=== PATIENT | female | born 1945 | race Caucasian/White ===

== ENCOUNTER → 2018-04-24 | Outpatient (CLI) | payer MEDICARE, BC | LOC: MC.RAD 07:38 | DX: Z12.31 Encounter for screening mammogram for malignant neoplasm of breast (principal) ==

== ENCOUNTER 2018-10-26 09:50 | Emergency (ER) | payer MEDICARE, BC ==
[2018-10-26 09:54] VITALS: TEMP 97.9
[2018-10-26 10:12] LABS: COLLECTION METHOD CLEAN CATCH
[2018-10-26] MEDS ORDERED: PRINIVIL20 MG (10:14)
[2018-10-26] MEDS ORDERED: ZANTAC 150MG T150 MG (10:14)
[2018-10-26] MEDS ORDERED: ZOCOR 20MG20 MG (10:14)
[2018-10-26] MEDS ORDERED: CLARITIN 1010 MG/TAB (10:18)
[2018-10-26 10:20] LABS: PH 7 (5-8); URINE APPEARANCE Turbid; URINE BACTERIA Rare /hpf; URINE BILIRUBIN Negative (NEGATIVE); URINE BLOOD Negative (NEGATIVE); URINE COLOR Yellow; URINE GLUCOSE 1+ (NEGATIVE); URINE KETONE Negative (NEGATIVE); URINE LEUKOCYTE ESTERASE 2+ (NEGATIVE); URINE NITRATE Negative (NEGATIVE); URINE PROTEIN(semi-quant) 3+ (NEGATIVE); URINE RBC 20-50 /hpf; URINE UROBILINOGEN Negative (NEGATIVE)
[2018-10-26 10:22] LABS: BASO % 0.4 % (0.0-2.0); EOS # 0.2 (0.0-0.7); EOS % 1.6 % (0-4.0); GRAN # 7.4 (1.4-6.5); GRAN % 71.8 % (42.2-75.2); HEMOGLOBIN 11.2 g/dl (12.5-16.0); LYMPH # 1.8 (1.2-3.4); LYMPH % 17.4 % (20.0-51.0); MEAN CELL VOLUME 98 fl (80.0-100.0); MEAN CORPUSCULAR HEMOGLOBIN 31 pg (27.0-31.0); MEAN CORPUSCULAR HGB CONC 32 g/dl (33.0-37.0); MEAN PLATELET VOLUME 9.3 fl (7.4-10.4); MONO # 0.9 (0.1-0.6); MONO % 8.6 % (1.7-9.3); PLATELET COUNT 250 K/mm3 (130-400); RED BLOOD COUNT 3.64 M/mm3 (4.10-5.30); REDCELL DISTRIBUTION WIDTH-CV 12.4 % (11.5-14.5)
[2018-10-26 10:24] LABS: HEMATOCRIT 35.6 % (37.0-47.0)
[2018-10-26 10:33] LABS: ALBUMIN 3.7 gm/dL (3.5-5.0); BILIRUBIN,TOTAL 0.2 mg/dL (0.0-1.0); CREATININE, serum 1.68 (0.52-1.25); POTASSIUM 4.4 mmol/L (3.4-5.0); TOTAL PROTEIN 7.5 gm/dL (6.4-8.2)
[2018-10-26] MEDS ORDERED: ZOFRAN 4MG T4 MG/TAB PO (11:48)
[2018-10-26] MEDS ORDERED: MACROBID 1100 MG/CAP PO (11:48)
[2018-10-26 12:06] VITALS: BP 119/61; PULSE 88
== END 2018-10-26 12:07 | disposition home or self-care (01) ==
LOC: COL.ER 09:50
PROVIDERS: Emergency Medicine
DX: N28.9 Disorder of kidney and ureter, unspecified (principal); N39.0 Urinary tract infection, site not specified; D64.9 Anemia, unspecified; N81.10 Cystocele, unspecified; I10 Essential (primary) hypertension

== ENCOUNTER → 2021-10-27 | Outpatient (CLI) | payer MEDICARE, BC ==
[~2021-10-27] MED LIST: CLARITIN 1010 MG/TAB; MACROBID 1100 MG/CAP PO; PRINIVIL20 MG; ZANTAC 150MG T150 MG; ZOCOR 20MG20 MG; ZOFRAN 4MG T4 MG/TAB PO
== END ==
LOC: MC.RAD 13:45
DX: Z12.31 Encounter for screening mammogram for malignant neoplasm of breast (principal)

== ENCOUNTER → 2024-02-06 | Outpatient (CLI) | payer MEDICARE, BC | LOC: MC.RAD 12:37 | DX: Z12.31 Encounter for screening mammogram for malignant neoplasm of breast (principal) ==